=== PATIENT | female | born 1980 | race Caucasian/White ===

== ENCOUNTER 2016-06-15 08:02 | Emergency (ER) | payer BC ==
[~2016-06-15 08:02] MED LIST: ACETAMINOPHEN PO; ADDERALL; ADDERALL PO; ADDERALL20 MG PO; ALDACTAZIDE 25/1 TAB PO; ALLEGRA PO; ALPRAZOLAM; ALPRAZOLAM PO; AMOXICILLIN PO; AMOXICILLIN500 M1 PO; ANUSOL-HC21 GM; ATENOLOL-CHLORT1 TA2 PO; ATENOLOL25 MG; AUGMENTIN PO; AVALIDE; BENZONATATE PO; BIRTH CONTROL PILL PO; CERTAGEN PO; CIPRO PO; CYMBALTA; CYMBALTA PO; DELSYM30 MG/5 ML PO; DOXYCYCLINE PO; EFFEXOR XR PO; FLEXERIL10 MG PO; HCTZ PO; ISONIAZID300 MG PO; KETOPROFEN PO; LAMICTAL100 MG PO; MILK OF MAGNESIA PO; MOBIC PO; MULTI-VITAMIN1 TAB; MYAMBUTOL400 MG PO; NASONEX17 GM; NORVASC PO; OCELLA; PAMELOR PO; PAXIL PO; PERCOCET5/325 PO; PHENERGAN PO; PREDNISONE PO; PRENATAL VITAMI1 TA3 PO; PRENATAL VITAMI1 TA4 PO; PROAIR INH; PYRAZINAMIDE PO; PYRIDOXINE PO; RIFAMPIN300 MG PO; SINGULAIR PO; TYLENOL #3 PO; ULTRAM PO; VANTIN200 MG PO; VICODIN 5/500 T1 TAB PO; VICOPROFEN 200-1 TAB PO; VITAMIN D-32000 UNIT PO; VOLTAREN75 MG PO; XANAX0.5 M1; XANAX2 MG PO; YASMIN 28 TABLE1 TAB PO; YAZ; ZYRTEC PO
[2016-11-16] MEDS ORDERED: OMEPRAZOLE20 M1 PO (14:05)
[2016-11-16] MEDS ORDERED: MONTELUKAST SOD10 MG PO (14:06)
[2016-11-16] MEDS ORDERED: ZYRTEC10 M2 PO (14:07)
[2016-11-16] MEDS ORDERED: LOMOTIL WHITE2.5 M1 PO (14:07)
[2016-11-16] MEDS ORDERED: PROAIR HFA8.5 GM INH (14:08)
[2016-11-16] MEDS ORDERED: SUMATRIPTAN SU100 MG PO (14:08)
[2016-11-16] MEDS ORDERED: VITAMIN B122500 MCG (14:15)
== END 2016-06-15 08:44 | disposition home or self-care (01) ==
LOC: SED 08:02
DX: M79.1 Myalgia (principal); Z90.49 Acquired absence of other specified parts of digestive tract; Z90.710 Acquired absence of both cervix and uterus; Z88.6 Allergy status to analgesic agent; Z88.8 Allergy status to other drugs, medicaments and biological substances
CPT/HCPCS: 99282

== ENCOUNTER → 2016-11-18 | Day surgery (SDC) | payer BC ==
[~2016-11-18] MED LIST changes: +LOMOTIL WHITE2.5 M1 PO; +MONTELUKAST SOD10 MG PO; +OMEPRAZOLE20 M1 PO; +PROAIR HFA8.5 GM INH; +SUMATRIPTAN SU100 MG PO; +VITAMIN B122500 MCG; +ZYRTEC10 M2 PO
--- NOTE | ~2016-11-18 | OR ---
Unit #: [id number] #: [id number] Patient: MICHAEL CRAIG [id number] [address] [id number] O MR#: [id number] NAME: MICHAEL CRAIG ROOM: Date of Procedure: 11/18/2016 Admission Date: 11/18/2016 Surgeon: Eros Botello M.D. : 1980 Attending Physician: Eros Botello M.D. Primary Care Physician: Jose Richmond M.D. OPERATIVE REPORT PREOPERATIVE DIAGNOSES Dysphagia, dyspepsia, and heartburn. The patient is status post lap-band surgery many years ago. PROCEDURES PERFORMED Upper gastrointestinal endoscopy and biopsy. POSTOPERATIVE DIAGNOSES 1. The patient had grade 1 to 2 distal erosive esophagitis. 2. There were postsurgical changes of lap-band surgery. 3. Gastric polyps. These were removed using cold biopsy forceps. 4. Prepyloric antral erosive gastritis. This was in the form of erosive antral erosions in the antral area. 5. Rest of the examination up to third part of duodenum was normal. No stricture was seen. In the esophagus, the patient however did have changes of postsurgical changes of gastric lap-band surgery. RECOMMENDATIONS Omeprazole 40 mg p.o. daily instead of 20 mg p.o. daily. The patient will be followed up in the office in 8 to 10 weeks' time. SEDATION USED MAC. DESCRIPTION OF PROCEDURE Following detailed explanation of potential risks and complications of an upper endoscopy, namely perforation, bleeding, and complication related to sedation, the patient was brought to GI lab and laid in the left lateral decubitus position. Lubricated tip of the Olympus video upper endoscope was passed through the bite block into the proximal esophagus under direct vision. The entire esophageal mucosa was examined. The patient was noted to have grade 1 to 2 distal erosive esophagitis with erosions at the Z-line in the distal esophagus. The scope was then advanced into the gastric cavity and the postsurgical changes of gastric lap-band surgery were seen. Mucosa of the fundus, body, and antrum was examined. The patient was noted to have prepyloric antral erythema erosions indicating antral gastritis. Pylorus was intubated with visualization of the normal duodenal bulb and second and third part of the duodenum. Upon withdrawal and retroflexion; incisura, cardia, and greater curve was examined and biopsy was obtained from the antrum for CLOtest. Two sessile polyps were noted in the stomach, one of these was removed and sent for histology. This had the appearance of a hyperplastic polyp. It was removed using Unit #: [id number] #: [id number] Patient: MICHAEL CRAIG cold biopsy forceps. The scope was then withdrawn in the distal esophagus. The entire esophageal mucosa was examined all the way up to pharynx. No additional findings were noted. The patient tolerated the procedure without any postprocedure complications. Dictated by... El Madsen/checo TD: 11/18/2016 14:10 JOB #: [id number] CC: Jose Richmond M.D. OPERATIVE REPORT Page 1 of 1 X Eros Botello MD X PROCEDURE OPERATIVE NOTE
== END | disposition home or self-care (01) ==
LOC: COPS 09:51
DX: K31.89 Other diseases of stomach and duodenum (principal); K22.10 Ulcer of esophagus without bleeding; K29.70 Gastritis, unspecified, without bleeding; Z98.84 Bariatric surgery status; J45.909 Unspecified asthma, uncomplicated; K21.9 Gastro-esophageal reflux disease without esophagitis; I10 Essential (primary) hypertension; Z87.440 Personal history of urinary (tract) infections; Z90.49 Acquired absence of other specified parts of digestive tract; Z98.51 Tubal ligation status; Z88.8 Allergy status to other drugs, medicaments and biological substances
CPT/HCPCS: 87077; 88305; 88312; J2250